=== PATIENT | female | born 1930 | race Caucasian/White ===

== ENCOUNTER → 2017-02-04 | Outpatient (CLI) | payer MEDICARE, BC ==
[~2017-02-04] MED LIST: AMBIEN CR12.5 MG PO; ASPIRIN 32325 MG/TAB PO; ATORVASTATIN; BACTRIM DS 8001 TAB PO; BUFFERED ASPIR325 M1 PO; CALCIUM CITRATE1 TA5 PO; CALTRATE 600 +1 TAB PO; CEPHALEXIN500 M1 PO; CYMBALTA; CYMBALTA 60MG60 MG PO; KLONOPIN 0.5MG0.5 MG PO; LEVOTHYROXINE PO; LIPITOR 40MG TA40 MG PO; LISINOPRIL; LODOSYN 25MG25 MG PO; MULTI VITAMINS1 TAB PO; MVI; MYRBETR25MG PO; NEURONTIN100 MG/CAP PO; NEURONTIN300 MG/CAP PO; NORCO 325 MG-7.1 TAB PO; NORMODYNE100 MG PO; OMEGA 31000 MG PO; PARCOPA 25/101 UDTAB PO; PRILOSEC 20MG20 MG PO; PRILOSEC10 MG PO; PRINIVIL20 MG PO; SYNTHROID0.05 MG/TA PO; ULTRAM 50MG TAB50 MG PO; XANAX .25M0.25 MG/TA PO
[2017-02-04 19:03] LABS: BASO # 0.1 (0.0-0.2); BASO % 1.2 % (0.0-2.0); EOS # 0.5 (0.0-0.7); EOS % 6.3 % (0-4.0); GRAN # 3.9 (1.4-6.5); GRAN % 53.7 % (42.2-75.2); HEMATOCRIT 43.1 % (37.0-47.0); HEMOGLOBIN 13.2 g/dl (12.5-16.0); LYMPH # 2.1 (1.2-3.4); LYMPH % 29.2 % (20.0-51.0); MEAN CELL VOLUME 89 fl (80.0-100.0); MEAN CORPUSCULAR HEMOGLOBIN 27 pg (27.0-31.0); MEAN CORPUSCULAR HGB CONC 31 g/dl (33.0-37.0); MEAN PLATELET VOLUME 9.8 fl (7.4-10.4); MONO # 0.7 (0.1-0.6); MONO % 9.3 % (1.7-9.3); PLATELET COUNT 234 K/mm3 (130-400); RED BLOOD COUNT 4.87 M/mm3 (4.10-5.30); REDCELL DISTRIBUTION WIDTH-CV 16.6 % (11.5-14.5); WHITE BLOOD COUNT 7.3 K/mm3 (4.8-10.8)
[2017-02-04 19:13] LABS: CALCIUM 9.5 mg/dL (8.4-10.2); CREATININE, serum 0.97 mg/dL (0.52-1.25); POTASSIUM 4.2 mmol/L (3.4-5.0)
== END ==
LOC: ZCOL.LAB 16:55
PROVIDERS: Nurse Practitioner Primary Care
DX: R53.83 Other fatigue (principal)

== ENCOUNTER 2018-05-18 11:48 | Inpatient (IN) | payer MEDICARE, BC ==
[~2018-05-18] VITALS: Ht 154.9 cm; Wt 73.3 kg
[2018-05-18 12:10] LABS: BASO # 0.1 (0.0-0.2); EOS # 0.3 (0.0-0.7); EOS % 2.8 % (0-4.0); GRAN # 4.9 (1.4-6.5); GRAN % 52.8 % (42.2-75.2); HEMATOCRIT 41.4 % (37.0-47.0); HEMOGLOBIN 13.2 g/dl (12.5-16.0); LYMPH # 3.1 (1.2-3.4); LYMPH % 33.8 % (20.0-51.0); MEAN CELL VOLUME 86 fl (80.0-100.0); MEAN CORPUSCULAR HEMOGLOBIN 27 pg (27.0-31.0); MEAN CORPUSCULAR HGB CONC 32 g/dl (33.0-37.0); MEAN PLATELET VOLUME 10.1 fl (7.4-10.4); MONO # 0.9 (0.1-0.6); MONO % 9.4 % (1.7-9.3); PLATELET COUNT 240 K/mm3 (130-400); RED BLOOD COUNT 4.83 M/mm3 (4.10-5.30); REDCELL DISTRIBUTION WIDTH-CV 16.2 % (11.5-14.5)
[2018-05-18 12:16] LABS: PROTHROMBIN TIME 11.1 SECONDS (9.7-12.8)
[2018-05-18 12:17] LABS: ALANINE AMINOTRANSFERASE 53 U/L (9-52); ALBUMIN 4.1 gm/dL (3.5-5.0); ALKALINE PHOSPHATASE 85 U/L (50-136); ANION GAP 12 mmol/L (7-16); AST,SGOT 36 U/L (15-37); BILIRUBIN,TOTAL 0.5 mg/dL (0.0-1.0); BLOOD UREA NITROGEN 15 mg/dL (7-17); CALCIUM 9.5 mg/dL (8.4-10.2); CARBON DIOXIDE 30 mmol/L (22-30); CHLORIDE 99 mmol/L (98-107); CREATININE, serum 0.88 mg/dL (0.52-1.25); GLUCOSE 103 mg/dL (74-106); LIPASE 99 U/L (23-300); POTASSIUM 4.3 mmol/L (3.4-5.0); SODIUM 141 mmol/L (137-145); TOTAL PROTEIN 7.7 gm/dL (6.4-8.2)
[2018-05-18 12:29] LABS: TROPONIN-I < 0.012 ng/mL (0.000-0.034)
[2018-05-18] MEDS ORDERED: MYCOSTATIN100000 U/1 TP (17:10)
[2018-05-18] MEDS ORDERED: MYRBETR50MG PO (17:12)
[2018-05-18] MEDS ORDERED: CARAFATE 1GM1 G PO (17:13)
[2018-05-18] MEDS ORDERED: OMEGA-3 1000 MG1 CAP PO (17:15)
[2018-05-18 19:25] VITALS: BP 170/80
[2018-05-18 19:49] VITALS: PULSE 69; TEMP 98.7
[2018-05-18 21:25] VITALS: BP 174/90
[2018-05-18 21:55] VITALS: BP 178/85
[2018-05-18 23:50] VITALS: BP 148/92; PULSE 63; TEMP 98.6
[2018-05-19] VITALS (11 sets, daily range): BP systolic 105–169; BP diastolic 63–94; PULSE 61–82; TEMP 97.5–98.6
[2018-05-19 07:12] LABS: BASO # 0.1 (0.0-0.2); BASO % 1.2 % (0.0-2.0); EOS # 0.3 (0.0-0.7); EOS % 4.2 % (0-4.0); GRAN # 3.8 (1.4-6.5); GRAN % 56.1 % (42.2-75.2); HEMATOCRIT 38.9 % (37.0-47.0); HEMOGLOBIN 12.8 g/dl (12.5-16.0); LYMPH % 29.3 % (20.0-51.0); MEAN CELL VOLUME 84 fl (80.0-100.0); MEAN CORPUSCULAR HEMOGLOBIN 28 pg (27.0-31.0); MEAN CORPUSCULAR HGB CONC 33 g/dl (33.0-37.0); MEAN PLATELET VOLUME 10.4 fl (7.4-10.4); MONO # 0.6 (0.1-0.6); MONO % 9.1 % (1.7-9.3); PLATELET COUNT 223 K/mm3 (130-400); RED BLOOD COUNT 4.64 M/mm3 (4.10-5.30); REDCELL DISTRIBUTION WIDTH-CV 16.2 % (11.5-14.5)
[2018-05-19 07:45] LABS: THYROID STIMULATING HORMONE 2.48 uIU/mL (0.465-4.680)
[2018-05-19 13:40] LABS: HEMATOCRIT 39.9 % (37.0-47.0); HEMOGLOBIN 12.9 g/dl (12.5-16.0); MEAN CELL VOLUME 84 fl (80.0-100.0); MEAN CORPUSCULAR HEMOGLOBIN 27 pg (27.0-31.0); MEAN CORPUSCULAR HGB CONC 32 g/dl (33.0-37.0); MEAN PLATELET VOLUME 10.1 fl (7.4-10.4); PLATELET COUNT 216 K/mm3 (130-400); RED BLOOD COUNT 4.75 M/mm3 (4.10-5.30); REDCELL DISTRIBUTION WIDTH-CV 15.9 % (11.5-14.5)
[2018-05-19 13:49] LABS: CALCIUM 9.3 mg/dL (8.4-10.2); CREATININE, serum 0.8 mg/dL (0.52-1.25); POTASSIUM 4.5 mmol/L (3.4-5.0)
[2018-05-19 13:51] LABS: PROTHROMBIN TIME 11.8 SECONDS (9.7-12.8)
[2018-05-19 13:53] LABS: PARTIAL THROMBOPLASTIN TIME 41.4 SECONDS (26.0-37.0)
[2018-05-20] VITALS (11 sets, daily range): BP systolic 110–142; BP diastolic 54–82; PULSE 51–60; TEMP 98.2–99.1
[2018-05-20 06:39] LABS: BASO # 0.1 (0.0-0.2); BASO % 0.9 % (0.0-2.0); EOS # 0.3 (0.0-0.7); EOS % 4.2 % (0-4.0); GRAN # 3.3 (1.4-6.5); GRAN % 50.1 % (42.2-75.2); HEMATOCRIT 37.7 % (37.0-47.0); HEMOGLOBIN 12.4 g/dl (12.5-16.0); LYMPH # 2.3 (1.2-3.4); LYMPH % 35.1 % (20.0-51.0); MEAN CELL VOLUME 84 fl (80.0-100.0); MEAN CORPUSCULAR HEMOGLOBIN 28 pg (27.0-31.0); MEAN CORPUSCULAR HGB CONC 33 g/dl (33.0-37.0); MEAN PLATELET VOLUME 10.2 fl (7.4-10.4); MONO # 0.6 (0.1-0.6); MONO % 9.4 % (1.7-9.3); PLATELET COUNT 212 K/mm3 (130-400); RED BLOOD COUNT 4.48 M/mm3 (4.10-5.30)
[2018-05-20 06:54] LABS: CREATININE, serum 0.83 mg/dL (0.52-1.25); POTASSIUM 4.2 mmol/L (3.4-5.0)
[2018-05-20] MEDS ORDERED: ASPIRIN E.C. 8181 MG PO (12:44)
[2018-05-20] MEDS ORDERED: COREG 6.256.25 MG/TA PO (12:45)
== END 2018-05-20 15:17 | disposition home health service (06) | DRG 287 ==
LOC: COL.ER 11:48 → MEDICAL 15:29
PROVIDERS: Emergency Medicine; Hospitalist; Internal Medicine Cardiovascular Disease
PROC: B2111ZZ Fluoroscopy of Multiple Coronary Arteries using Low Osmolar Contrast (ICD-10-PCS; principal; 2018-05-20)
DX: R07.9 Chest pain, unspecified (principal); E11.9 Type 2 diabetes mellitus without complications; I10 Essential (primary) hypertension; E78.5 Hyperlipidemia, unspecified; M51.36 Other intervertebral disc degeneration, lumbar region; G20 Parkinson's disease; E03.9 Hypothyroidism, unspecified; F41.8 Other specified anxiety disorders; F03.90 Unspecified dementia, unspecified severity, without behavioral disturbance, psychotic disturbance, mood disturbance, and anxiety; Z86.73 Personal history of transient ischemic attack (TIA), and cerebral infarction without residual deficits; G89.4 Chronic pain syndrome
CPT/HCPCS: 99233-AI; 99239; A9502; G0378; J1644; J2250; J2405; J2785; J3010; Q9967

== ENCOUNTER → 2018-05-26 | Outpatient (CLI) | payer MEDICARE, BC ==
[~2018-05-26] MED LIST changes: +ASPIRIN E.C. 8181 MG PO; +CARAFATE 1GM1 G PO; +COREG 6.256.25 MG/TA PO; +MYCOSTATIN100000 U/1 TP; +MYRBETR50MG PO; +OMEGA-3 1000 MG1 CAP PO
[2018-05-26 15:40] LABS: BASO # 0.1 (0.0-0.2); BASO % 1.3 % (0.0-2.0); EOS # 0.3 (0.0-0.7); GRAN # 3.7 (1.4-6.5); HEMOGLOBIN 12.5 g/dl (12.5-16.0); LYMPH # 2.3 (1.2-3.4); LYMPH % 31.9 % (20.0-51.0); MEAN CELL VOLUME 86 fl (80.0-100.0); MEAN CORPUSCULAR HEMOGLOBIN 27 pg (27.0-31.0); MEAN CORPUSCULAR HGB CONC 32 g/dl (33.0-37.0); MEAN PLATELET VOLUME 10.3 fl (7.4-10.4); MONO # 0.7 (0.1-0.6); MONO % 9.5 % (1.7-9.3); PLATELET COUNT 245 K/mm3 (130-400); RED BLOOD COUNT 4.56 M/mm3 (4.10-5.30); REDCELL DISTRIBUTION WIDTH-CV 15.8 % (11.5-14.5)
[2018-05-26 15:51] LABS: ANION GAP 11 mmol/L (7-16); BLOOD UREA NITROGEN 24 mg/dL (7-17); CALCIUM 9.6 mg/dL (8.4-10.2); CARBON DIOXIDE 30 mmol/L (22-30); CHLORIDE 99 mmol/L (98-107); CREATININE, serum 0.93 mg/dL (0.52-1.25); GLUCOSE 102 mg/dL (74-106); POTASSIUM 5.2 mmol/L (3.4-5.0); SODIUM 139 mmol/L (137-145)
[2018-05-26 16:06] LABS: TROPONIN-I < 0.012 ng/mL (0.000-0.034)
== END ==
LOC: ZCOL.LAB 15:36
PROVIDERS: Internal Medicine
DX: R07.9 Chest pain, unspecified (principal)

== ENCOUNTER 2018-07-01 05:34 | Emergency (ER) | payer MEDICARE, BC ==
[~2018-07-01] VITALS: Ht 154.9 cm; Wt 72.2 kg
[2018-07-01 05:37] VITALS: BP 175/78; TEMP 97.9
[2018-07-01 06:44] LABS: BASO # 0.1 (0.0-0.2); EOS # 0.3 (0.0-0.7); EOS % 4.6 % (0-4.0); HEMATOCRIT 38.5 % (37.0-47.0); HEMOGLOBIN 12.5 g/dl (12.5-16.0); LYMPH # 2.2 (1.2-3.4); LYMPH % 35.3 % (20.0-51.0); MEAN CELL VOLUME 86 fl (80.0-100.0); MEAN CORPUSCULAR HEMOGLOBIN 28 pg (27.0-31.0); MEAN CORPUSCULAR HGB CONC 33 g/dl (33.0-37.0); MEAN PLATELET VOLUME 9.5 fl (7.4-10.4); MONO # 0.8 (0.1-0.6); MONO % 11.9 % (1.7-9.3); PLATELET COUNT 188 K/mm3 (130-400); REDCELL DISTRIBUTION WIDTH-CV 15.7 % (11.5-14.5)
[2018-07-01 06:52] LABS: COLLECTION METHOD CLEAN CATCH
[2018-07-01 06:57] LABS: PH 6 (5-8); SQUAMOUS EPITHELIAL None Seen /hpf; URINE APPEARANCE Clear; URINE BACTERIA None Seen /hpf; URINE BILIRUBIN Negative (NEGATIVE); URINE BLOOD Negative (NEGATIVE); URINE COLOR Straw; URINE GLUCOSE Negative (NEGATIVE); URINE KETONE Negative (NEGATIVE); URINE LEUKOCYTE ESTERASE Negative (NEGATIVE); URINE NITRATE Negative (NEGATIVE); URINE PROTEIN(semi-quant) Negative (NEGATIVE); URINE RBC 0-2 /hpf; URINE UROBILINOGEN Negative (NEGATIVE)
[2018-07-01 06:57] LABS: ALBUMIN 3.6 gm/dL (3.5-5.0); BILIRUBIN,TOTAL 0.5 mg/dL (0.0-1.0); CALCIUM 8.4 mg/dL (8.4-10.2); CREATININE, serum 0.93 mg/dL (0.52-1.25); POTASSIUM 4.2 mmol/L (3.4-5.0); TOTAL PROTEIN 6.6 gm/dL (6.4-8.2)
[2018-07-01 09:17] VITALS: PULSE 72
== END 2018-07-01 09:18 | disposition home or self-care (01) ==
LOC: COL.ER 05:34
PROVIDERS: Emergency Medicine
DX: N83.201 Unspecified ovarian cyst, right side (principal); E11.9 Type 2 diabetes mellitus without complications; I10 Essential (primary) hypertension; F32.9 Major depressive disorder, single episode, unspecified; F41.9 Anxiety disorder, unspecified; Z86.73 Personal history of transient ischemic attack (TIA), and cerebral infarction without residual deficits; Z87.442 Personal history of urinary calculi; Z90.49 Acquired absence of other specified parts of digestive tract; Z90.89 Acquired absence of other organs; Z98.890 Other specified postprocedural states; Z90.710 Acquired absence of both cervix and uterus; Z79.82 Long term (current) use of aspirin
CPT/HCPCS: J1885; J2405; J3010; J7030; Q9967

== ENCOUNTER 2018-09-10 13:59 | Emergency (ER) | payer MEDICARE, BC ==
[~2018-09-10] VITALS: Ht 154.9 cm; Wt 63.6 kg
[2018-09-10 14:15] VITALS: TEMP 98.5
[2018-09-10] MEDS ORDERED: LIPITOR 40MG TA40 MG PO (15:34)
[2018-09-10] MEDS ORDERED: SINEMET 25/101 UDTAB PO (15:35)
[2018-09-10] MEDS ORDERED: LODOSYN 25MG25 MG PO (15:36)
[2018-09-10] MEDS ORDERED: CEPHALEXIN500 M1 PO (15:37)
[2018-09-10] MEDS ORDERED: TRANDATE 200MG200 MG PO (15:40)
[2018-09-10] MEDS ORDERED: PRINIVIL40 MG PO (15:43)
[2018-09-10] MEDS ORDERED: MULTI VITAMINS1 TAB PO (15:46)
[2018-09-10] MEDS ORDERED: ASPIRIN 32325 MG/TAB PO (15:47)
[2018-09-10] MEDS ORDERED: MOTRIN 200200 MG/TAB PO (15:49)
[2018-09-10] MEDS ORDERED: CALCIUM CITRATE1 TA1 PO (15:50)
[2018-09-10] MEDS ORDERED: NORCO 325 MG-51 TAB PO (16:29)
[2018-09-10 17:02] VITALS: BP 163/92; PULSE 64
== END 2018-09-10 17:02 | disposition home or self-care (01) ==
LOC: COL.ER 13:59
DX: S27.9XXA Injury of unspecified intrathoracic organ, initial encounter (principal); Z90.710 Acquired absence of both cervix and uterus; Z90.89 Acquired absence of other organs; Z90.49 Acquired absence of other specified parts of digestive tract; W01.190A Fall on same level from slipping, tripping and stumbling with subsequent striking against furniture, initial encounter; Y92.009 Unspecified place in unspecified non-institutional (private) residence as the place of occurrence of the external cause

== ENCOUNTER 2018-09-18 16:55 | Emergency (ER) | payer MEDICARE, BC ==
[~2018-09-18] VITALS: Ht 154.9 cm; Wt 71.3 kg
[~2018-09-18 16:55] MED LIST changes: +CALCIUM CITRATE1 TA1 PO; +MOTRIN 200200 MG/TAB PO; +NORCO 325 MG-51 TAB PO; +PRINIVIL40 MG PO; +SINEMET 25/101 UDTAB PO; +TRANDATE 200MG200 MG PO
[2018-09-18 18:03] LABS: BASO # 0.1 (0.0-0.2); BASO % 1.1 % (0.0-2.0); EOS # 0.2 (0.0-0.7); EOS % 2.8 % (0-4.0); GRAN # 3.6 (1.4-6.5); HEMATOCRIT 42.4 % (37.0-47.0); HEMOGLOBIN 13.7 g/dl (12.5-16.0); LYMPH # 2.7 (1.2-3.4); LYMPH % 36.8 % (20.0-51.0); MEAN CELL VOLUME 86 fl (80.0-100.0); MEAN CORPUSCULAR HEMOGLOBIN 28 pg (27.0-31.0); MEAN CORPUSCULAR HGB CONC 32 g/dl (33.0-37.0); MEAN PLATELET VOLUME 9.4 fl (7.4-10.4); MONO # 0.8 (0.1-0.6); MONO % 10.2 % (1.7-9.3); PLATELET COUNT 203 K/mm3 (130-400); RED BLOOD COUNT 4.95 M/mm3 (4.10-5.30); REDCELL DISTRIBUTION WIDTH-CV 15.2 % (11.5-14.5)
[2018-09-18 18:05] LABS: INR 1.1 (0.8-3.0)
[2018-09-18 18:08] LABS: PARTIAL THROMBOPLASTIN TIME 32.5 SECONDS (26.0-37.0)
[2018-09-18 18:14] LABS: ALANINE AMINOTRANSFERASE 27 U/L (9-52); ALBUMIN 4.4 gm/dL (3.5-5.0); ALKALINE PHOSPHATASE 71 U/L (50-136); ANION GAP 7 mmol/L (7-16); AST,SGOT 37 U/L (15-37); BILIRUBIN,TOTAL 0.7 mg/dL (0.0-1.0); BLOOD UREA NITROGEN 18 mg/dL (7-17); CALCIUM 9.4 mg/dL (8.4-10.2); CARBON DIOXIDE 31 mmol/L (22-30); CHLORIDE 103 mmol/L (98-107); CREATININE, serum 0.78 mg/dL (0.52-1.25); GLUCOSE 101 mg/dL (74-106); POTASSIUM 4.4 mmol/L (3.4-5.0); SODIUM 141 mmol/L (137-145); TOTAL PROTEIN 7.8 gm/dL (6.4-8.2)
[2018-09-18 18:15] LABS: COLLECTION METHOD CLEAN CATCH
[2018-09-18 18:18] LABS: C-REACTIVE PROTEIN < 0.5 mg/dL (0.0-0.9)
[2018-09-18 18:27] LABS: PH 6 (5-8); SQUAMOUS EPITHELIAL 0-2 /hpf; URINE APPEARANCE Clear; URINE BACTERIA None Seen /hpf; URINE BILIRUBIN Negative (NEGATIVE); URINE BLOOD Negative (NEGATIVE); URINE COLOR Yellow; URINE GLUCOSE Negative (NEGATIVE); URINE KETONE Negative (NEGATIVE); URINE LEUKOCYTE ESTERASE Negative (NEGATIVE); URINE NITRATE Negative (NEGATIVE); URINE PROTEIN(semi-quant) Negative (NEGATIVE); URINE RBC 0-2 /hpf; URINE UROBILINOGEN Negative (NEGATIVE)
[2018-09-18 20:20] VITALS: BP 169/91; PULSE 60; TEMP 97.8
== END 2018-09-18 20:41 | disposition home or self-care (01) ==
LOC: COL.ER 16:55
PROVIDERS: Emergency Medicine
DX: S30.1XXA Contusion of abdominal wall, initial encounter (principal); R19.00 Intra-abdominal and pelvic swelling, mass and lump, unspecified site; I10 Essential (primary) hypertension; G20 Parkinson's disease; Z79.891 Long term (current) use of opiate analgesic; Z79.82 Long term (current) use of aspirin; Z79.1 Long term (current) use of non-steroidal anti-inflammatories (NSAID); W01.0XXA Fall on same level from slipping, tripping and stumbling without subsequent striking against object, initial encounter
CPT/HCPCS: J2405; J3010; J7030; Q9967

== ENCOUNTER → 2019-05-05 | Outpatient (CLI) | payer MEDICARE, BC | LOC: MC.RAD 10:05 | DX: Z12.31 Encounter for screening mammogram for malignant neoplasm of breast (principal) ==

== ENCOUNTER → 2019-09-07 | Outpatient (CLI) | payer MEDICARE, BC | LOC: COL.RAD 11:29 | DX: M47.814 Spondylosis without myelopathy or radiculopathy, thoracic region (principal); R22.2 Localized swelling, mass and lump, trunk; M47.816 Spondylosis without myelopathy or radiculopathy, lumbar region; M43.16 Spondylolisthesis, lumbar region ==

== ENCOUNTER 2019-10-13 08:56 | Emergency (ER) | payer MEDICARE, BC ==
[~2019-10-13] VITALS: Ht 307.3 cm; Wt 68.2 kg
[2019-10-13 10:15] VITALS: BP 191/95; PULSE 62; TEMP 98.3
== END 2019-10-13 10:15 | disposition home or self-care (01) ==
LOC: COL.ER 08:56
DX: S09.90XA Unspecified injury of head, initial encounter (principal); G20 Parkinson's disease; R40.2412 Glasgow coma scale score 13-15, at arrival to emergency department; W01.198A Fall on same level from slipping, tripping and stumbling with subsequent striking against other object, initial encounter

== ENCOUNTER → 2020-02-03 | Outpatient (CLI) | payer MEDICARE, BC | LOC: COL.RAD 10:56 | DX: Z01.812 Encounter for preprocedural laboratory examination (principal); R19.09 Other intra-abdominal and pelvic swelling, mass and lump; M47.816 Spondylosis without myelopathy or radiculopathy, lumbar region; M43.16 Spondylolisthesis, lumbar region | CPT/HCPCS: Q9967 ==